=== PATIENT | female | born 1960 | race Caucasian/White ===

== ENCOUNTER 2021-03-08 02:18 | Outpatient (CLI) | payer BC, SELFPAY ==
[2021-03-08 12:21] LABS: Source Nasal/Nares
[2021-03-08 14:35] LABS: COVID-19 PCR Negative (Negative)
== END 2021-03-08 02:19 | disposition home or self-care (01) ==
LOC: LBO 02:18
PROVIDERS: PCP Internal Medicine; Visit Provider Podiatrist
DX: Z20.822 Contact with and (suspected) exposure to COVID-19 (principal)
CPT/HCPCS: 87635

== ENCOUNTER 2021-03-10 07:26 | Day surgery (SDC) | payer BC, SELFPAY ==
[2021-03-10 07:42] VITALS: BP 127/92; PULSE 63; RESP 18; TEMP 36.8; O2SAT 100
[2021-03-10] MEDS: Lactated Ringers 1,000 ML 80 ML IV (08:12)
--- NOTE | 2021-03-10 08:16 | W.ANESPRE ---
General Info Date of Service Date Performed: 03/10/21 Height: 5 ft 4 in Weight: 59.2 kg Body Mass Index (BMI): 22.4 Surgical Procedure: Operation Date: 03/10/21 08:40 Proposed Procedures Side Surgeon p Exostosis/Excision Midfoot Right Jn Haywood DPM Meds Allergies and Home Medications Allergies Allergy/AdvReac Type Severity Reaction Status Date / Time amoxicillin Allergy Mild Skin Rash Unverified 03/10/21 07:38 latex Allergy Mild skin rash Unverified 03/10/21 07:38 on self while wearing Home Medication Medication Instructions Recorded loratadine 10 mg tablet 10 mg PO DAILY 10/25/20 diphenhydramine HCl 25 mg capsule 25 mg PO BID PRN cap 12/05/20 omeprazole magnesium 20 mg PO DAILY 03/09/21 fluorometholone drp 03/10/21 lifitegrast [Xiidra] drp 03/10/21 Current Visit Medications: Current Medications Generic Name Dose Route Start Last Admin Trade Name Freq PRN Reason Stop Dose Admin Sodium Chloride 500 mls @ 0 mls/hr 03/10/21 06:00 Saline 500ml Bag IV PRN PRN As Directed Clindamycin Phosphate/Dextrose 600 mg in 50 mls @ 100 mls/hr 03/10/21 06:00 Cleocin In D5w IVPB PREOP CHUN Ringer's Solution 1,000 mls @ 80 mls/hr 03/10/21 06:00 03/10/21 08:12 IV 04/08/21 23:59 80 mls/hr INFUSION CHUN Administration IV Miscellaneous Supplies 1 each 03/10/21 06:00 Iv Access IV DIRECTED CHUN IV Miscellaneous Supplies 1 each 03/10/21 06:00 Iv Access IV 04/08/21 23:59 DIRECTED CHUN Povidone Iodine 0 ml 03/10/21 06:00 Povidone-Iodine Soln. 118 Ml Btl TP DIRECTED CHUN Sodium Chloride 0 ml 03/10/21 06:00 Normal Saline Flush 10 Ml Syr IVP PRN PRN Sodium Chloride 0 ml 03/10/21 06:00 Normal Saline Flush 10 Ml Syr IV 04/08/21 23:59 PRN PRN Sodium Chloride 0 ml 03/10/21 06:00 Normal Saline 10 Ml Vial IJ 04/08/21 23:59 DIRECTED PRN Sterile Water 0 ml 03/10/21 06:00 Water,Injection,Sterile 10 Ml Vial IJ 04/08/21 23:59 DIRECTED PRN PFSH Active Problems Active Problems: Problem Status Onset Code Right carpal tunnel syndrome G56.01 Medical History Active Problem List Right carpal tunnel syndrome (Acute) Medical History Allergic rhinitis COVID-19 12/21/20 History of depression Neuroma Surgical History Surgical History (Updated 03/10/21 @ 07:38 by Marisela Hobbs RN) History of bunionectomy (2015) bilateral feet Tobacco Smoking/Tobacco Use Status: Current every day Tobacco Type: cigarettes Smoking cigarettes per day: 10 Years smoked: 35 Tobacco: How many years used: 35 Alcohol Alcohol Intake: never Substance Use Substance use: Never Substance use type: does not use Vital Signs and Lab Results Vital Signs Most Recent Vital Signs in EMR: Most Recent Vital Signs Temp Pulse Resp BP Pulse Ox 36.8 C 63 18 127/92 H 100 03/10/21 07:42 03/10/21 07:42 03/10/21 07:42 03/10/21 07:42 03/10/21 07:42 Lab Results Blood Type / Crossmatch: No Data to Display Complete Blood Count: No Data to Display Complete Metabolic Panel: No Data to Display Liver Function Panel: No Data to Display Coagulation Panel: No Data to Display Cardiac Panel: No Data to Display Arterial Blood Gas: No Data to Display Venous Blood Gas: No Data to Display Pancreas Panel: No Data to Display Thyroid Panel: No Data to Display Infectious Disease: Coronavirus (COVID-19)(PCR) Negative (Negative) 03/08/21 08:45 03/08/21 Coronavirus 2019 Source Nasal/Nares 03/08/21 08:45 03/08/21 Blood Cultures: No Data to Display Toxicology Panel: No Data to Display Anesthesia Assessment and Plan Anesthesia History Personal History: No History of Anesthesia Complications Family History: No Family History of Anesthesia Complications Exercise Tolerance Exercise Tolerance: Metabolic Equivalents<4 Cardiac & Pulmonary Exam Cardiac Exam: Normal S1/S2 Heart Sounds Pulmonary Exam: Clear Bilateral Breath Sounds Implantable Cardiac Device Does patient have a Pacemaker or an ICD?: No Airway Exam Known Difficult Airway: No Mallampati Class: 3 Mouth Opening: Narrow (< 3cm) Thyromental Distance: Less than 3 cm Neck Range of Motion: Full ROM Neck Circumference: Normal Teeth Condition: Normal Dentition Airway Comments: denies chipped, but front teeth have a chipped appearance. ASA Classification ASA Score: ASA 2 Emergency Case?: No NPO Status NPO Status: NPO Clears >2 hours, Solids >8 hours Anesthesia Plan Resuscitation Status: Full Code Anesthesia Technique: General Anesthesia Airway Planned: Natural Airway Monitors Used: Standard Monitors Preoperative Comments:: 60 yo female for excision right midfoot. Sig PMHx: COVID (12/2020), current smoker, depression, GERD (well controlled with 20 mg omep).
[2021-03-10 08:19] VITALS: BMI 22.4
--- NOTE | 2021-03-10 08:47 | W.PM.HP.N ---
Date of service: 03/10/21 Time of Service: 08:47 History of Present Illness History of Present Illness Chief Complaint: midtarsal exostosis right foot Narrative: Functional 60-year-old female with increasing pain associated with a midtarsal dorsal exostosis of the right foot. Pain is interfering with shoe gear and daily activities. Nonoperative treatment failed to provide sufficient relief of symptoms and she is opting for surgical intervention. [facility] Active Problem List Right carpal tunnel syndrome (Acute) Medical History Allergic rhinitis COVID-19 12/21/20 History of depression Neuroma Surgical History History of bunionectomy (2015) bilateral feet Family History Sister Skin cancer Sister Breast cancer Social History Smoking/Tobacco Use Status: Current every day Tobacco Type: cigarettes Years smoked: 35 Tobacco: How many years used: 35 Smoking risk assessment performed?: Yes Alcohol Intake: never Drug use: Never Substance use type: does not use Do you feel safe at home: Yes Do you feel safe in your relationship?: Yes Meds Allergies and Home Medications Allergies Allergy/AdvReac Type Severity Reaction Status Date / Time amoxicillin Allergy Mild Skin Rash Unverified 03/10/21 07:38 latex Allergy Mild skin rash Unverified 03/10/21 07:38 on self while wearing Home Medications Medication Instructions Recorded Confirmed Type loratadine 10 mg tablet 10 mg PO DAILY 10/25/20 03/10/21 History diphenhydramine HCl 25 mg capsule 25 mg PO BID PRN cap 12/05/20 03/09/21 History omeprazole magnesium 20 mg PO DAILY 03/09/21 03/10/21 History fluorometholone drp 03/10/21 History lifitegrast [Xiidra] drp 03/10/21 History Exam Narrative Exam Narrative: heads normocephalic eyes PERRLA Hearing is adequate Uvula is midline airway looks assessable Heart had regular rate and rhythm I detected no rubs gallops or murmurs Lung irby were clear Abdomen was soft nontender bowel sounds appreciated Peripheral pulses at the ankle 2 out of 4 bilaterally no edema capillary fill is under 3 seconds to all toes Muscle groups are 5 out of 5 bilaterally Skeletal exam is remarkable for large midtarsal dorsal exostosis of the right foot. There is low-grade tenosynovitis surrounding the exostosis and pain to gentle palpation. Neurologically she is grossly intact. Impressions: Symptomatic right midtarsal dorsal exostosis Plan: Doris is being brought to the OR for surgical resection of the right midtarsal dorsal exostosis formation. She understands risk and complications of surgery pertaining to the potential for pain, scarring, infection, nerve injury, instability of the midtarsal joints potentially requiring revisional procedures such as a fusion stabilization. All questions have been answered in detail no promises made to the final outcome of surgery Results Last Vital Signs Temp 36.8 C 03/10/21 07:42 Pulse 63 03/10/21 07:42 Resp 18 03/10/21 07:42 BP 127/92 H 03/10/21 07:42 Pulse Ox 100 03/10/21 07:42
[2021-03-10] MEDS: CLINDAMYCIN 600 MG/50 ML BAG 100 MG IVPB (09:30)
[2021-03-10] MEDS: Lidocaine 1% Multi-Dose 50 ML VIAL (09:36)
[2021-03-10] MEDS: Bupivacaine 0.5% Pres-Free 30 ML VIAL (09:36)
[2021-03-10] MEDS: Dexamethasone 4 MG/ML VIAL (10:06)
--- NOTE | 2021-03-10 10:33 | W.PM.DSUDISC ---
Discharge Plan Disposition Patient Disposition: HOME Condition: Good Discharge Details Reason For Visit: resection right midfoot exostosis Attending Provider: Jn Haywood Primary Care Provider: Christel Medina Home Meds and New Rx's Prescriptions: New ibuprofen 600 mg tablet 600 mg PO Q6H PRN (Reason: pain) Qty: 60 RF: 0 oxycodone-acetaminophen 5-325 mg tablet 1 tab PO Q6H PRN (Reason: pain) Qty: 9 RF: 0 Continued diphenhydramine HCl [Benadryl] 25 mg capsule 25 mg PO BID PRNRF: 0 loratadine 10 mg tablet 10 mg PO DAILY RF: 0 omeprazole magnesium 20 mg Tablet,Delayed Release (Dr/Ec) 20 mg PO DAILY RF: 0 fluorometholone 0.1 % drops,suspension RF: 0 Xiidra 5 % dropperette RF: 0 Discharge Instructions Activity:: Elevate Remove Dressings/Wound Care:: Do Not Remove Shower/Bathe:: Cover Diet:: Normal Diet Discharge Orders Discharge Orders: Discharge Order (Routine); Ordered 03/10/21 Ordered By: Jn Haywood DS: Diagnosis Discharge Diagnosis (1) Exostosis of bone of foot: Status: Acute
[2021-03-10 10:34] VITALS: BP 129/90; PULSE 53; RESP 16; TEMP 35.9; O2SAT 99
--- NOTE | 2021-03-10 10:42 | ROE_ITS ---
Date of service: 03/10/21 Time of Service: 10:42 Operative Note Operative Note DATE OF PROCEDURE: 03/10/21 PRE-OP DIAGNOSIS: midtarsal dorsal exostosis right foot POST-OP DIAGNOSIS: same SURGEON: Jn Haywood ANESTHESIA TYPE: General:No Airway Refer to Anesthesia Record ESTIMATED BLOOD LOSS: 0 PATHOLOGY: none sent TOURNIQUET TIME: 36 COMPLICATIONS: None Patient was transported to: same day Patient's condition: stable Indications: 60-year-old female with increasing pain associated with a midtarsal dorsal exostosis of the right foot. Pain was interfering with shoe gear daily activities and was not responding to nonoperative treatments. She is opting for surgical intervention. She understands potential risk and complications pertaining to pain, scarring, infection, ongoing discomfort associated with joint instability and degenerative arthritis of the second metatarsocuneiform joint as well as the adjacent bony structures, nerve injury with the potential for CRPS. All questions have been answered in detail. No promises made to the final outcome of surgery. Procedure Description: Doris was brought to the operative suite placed in the supine position with the right foot was prepped and draped in the usual sterile podiatric fashion. Timeout was performed in the usual fashion for safe surgery. Anesthesia being obtained the right foot was exsanguinated well-padded ankle tourniquet inflated 250 mmHg. Attention was directed to the region over the second metatarsocuneiform joint where a dorsal exostosis was easily palpable. The incision was approximately 2-1/2 cm in length. The incision was deepened in controlled depth fashion starting with a #10 scalpel blade and then going to a #15 scalpel. Electrocautery was employed as needed for hemostasis. Dissection was then further carried down to the periosteum overlying the second metatarsal cuneiform joint having moved medially and laterally extensor tendon and neurologic structures. The periosteum was incised midline directly over the exostosis and spread medially and laterally. Once it was fully exposed osteotome and mallet was then employed to resect the exostosis. A hand rasp was then used to reduce and saucerize the exostectomy site and surrounding bony margins. Copious irrigation was performed. Good resection of bone was appr eciated. The periosteum was repaired with simple interrupted suture 3-0 Vicryl the fascia and subcutaneous layers were then closed with 3-0 Vicryl and 4-0 Vicryl respectively bringing the skin together with a continuous running suture of 4-0 Monocryl 4 mg dexamethasone phosphate was then infused deeply into the wound. Mastisol half-inch Steri-Strips applied followed by Xeroform gauze fluff compression dressing. Sharp and sponge counts were correct. Doris left the OR with vital signs stable vascular status intact. She will be followed by myself in the office next week.
[2021-03-10 11:04] VITALS: BP 117/82; PULSE 56; RESP 16; TEMP 36.6; O2SAT 98
--- NOTE | 2021-03-10 11:04 | W.ANESPOSTOP ---
Postoperative Evaluation Date, Time and Location Date Performed: 03/10/21 Time Performed: 11:04 Patient Location: Day Surgery Unit Vital Signs Most Recent Imported Vital Signs: Most Recent Vital Signs Temp Pulse Resp BP Pulse Ox 35.9 C L 53 L 16 129/90 99 03/10/21 10:34 03/10/21 10:34 03/10/21 10:34 03/10/21 10:34 03/10/21 10:34 Pain Score Most Recent Pain Score: Most Recent Pain Score Pain Level 0 03/10/21 10:34 Assessment Mental Status: Awake (Alert & Oriented to Patient Baseline) Airway and Respiratory Function: Patent airway with normal (patient baseline) respiratory exam Cardiovascular Function: Hemodynamically Stable Hydration Status: Adequately Hydrated Nausea & Vomiting: No Nausea or Vomiting Pain: Pt. Denies Any Pain Peripheral Nerve Block: Patient did not receive a nerve block
== END 2021-03-10 07:27 | disposition home or self-care (01) ==
PROVIDERS: PCP Internal Medicine; Visit Provider Podiatrist
PROC: (CPT 28288; principal; 2021-03-10 08:30)
DX: M89.8X7 Other specified disorders of bone, ankle and foot (principal); F17.210 Nicotine dependence, cigarettes, uncomplicated; Z86.16 Personal history of COVID-19
CPT/HCPCS: 28104; J1100; J2001; J2405